=== PATIENT | male | born 1975 | race Caucasian/White ===

== ENCOUNTER 2017-01-22 18:39 | Emergency (ER) | payer OTHER ==
[~2017-01-22] VITALS: Ht 170.2 cm; Wt 116.0 kg
[~2017-01-22 18:39] MED LIST: HYD25 PO
[2017-01-22 18:45] VITALS: Ht 170.2 cm; Wt 116.0 kg
[2017-01-22] MEDS ORDERED: AZIT250T94 PO (20:07)
[2017-01-22] MEDS ORDERED: D-ME473S18 PO (20:07)
[2017-01-22] MEDS ORDERED: IBUP-1542 PO (20:07)
[2017-01-22] MEDS ORDERED: PRED20TA PO (20:07)
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
[2017-01-22 20:25] VITALS: BP 160/98; PULSE 110; RESP 18; TEMP 98.4
== END 2017-01-22 20:26 | disposition home or self-care (01) ==
LOC: FTE 18:39
DX: J06.9 Acute upper respiratory infection, unspecified (principal); F17.210 Nicotine dependence, cigarettes, uncomplicated; I10 Essential (primary) hypertension
CPT/HCPCS: 99284

== ENCOUNTER 2017-05-14 20:31 | Emergency (ER) | payer SELFPAY ==
[~2017-05-14] VITALS: Ht 170.2 cm; Wt 108.5 kg
[~2017-05-14 20:31] MED LIST changes: +AZIT250T94 PO; +D-ME473S18 PO; +IBUP-1542 PO; +PRED20TA PO
[2017-05-14 20:34] VITALS: Ht 170.2 cm; Wt 108.5 kg
== END 2017-05-14 21:52 | disposition left against medical advice (07) ==
LOC: FTE 20:31
DX: Z53.21 Procedure and treatment not carried out due to patient leaving prior to being seen by health care provider (principal)

== ENCOUNTER 2017-05-16 23:19 | Emergency (ER) | payer SELFPAY ==
[~2017-05-16] VITALS: Ht 172.7 cm; Wt 110.0 kg
[2017-05-17 00:03] VITALS: Ht 172.7 cm; Wt 110.0 kg
== END 2017-05-17 01:43 | disposition left against medical advice (07) ==
LOC: FTE 23:19
DX: Z53.21 Procedure and treatment not carried out due to patient leaving prior to being seen by health care provider (principal)

== ENCOUNTER 2017-05-17 04:21 | Emergency (ER) | payer OTHER ==
[~2017-05-17] VITALS: Ht 175.3 cm; Wt 110.0 kg
[2017-05-17 04:23] VITALS: Ht 175.3 cm; Wt 110.0 kg
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
[2017-05-17] MEDS ORDERED: KETOROLAC 15 MG INJ IM STA (04:50)
[2017-05-17] MEDS ORDERED: DIAZEPAM 5 MG TAB PO ONE (05:00)
== END 2017-05-17 05:52 | disposition left against medical advice (07) ==
LOC: FTE 04:21
DX: M25.551 Pain in right hip (principal); M54.5 Low back pain; I10 Essential (primary) hypertension; F17.210 Nicotine dependence, cigarettes, uncomplicated
CPT/HCPCS: 99282; J1885

== ENCOUNTER 2017-06-30 22:26 | Emergency (ER) | payer OTHER ==
[~2017-06-30] VITALS: Ht 167.6 cm; Wt 118.0 kg
[~2017-06-30 22:26] MED LIST changes: -HYD25 PO; +HYDR25TA6 PO
[2017-06-30 22:49] VITALS: Ht 167.6 cm; Wt 118.0 kg
[2017-06-30] MEDS ORDERED: CEPHALEXIN 500 MG CAP PO STA (23:11)
[2017-06-30] MEDS ORDERED: CEPH-443 PO (23:12)
[2017-06-30] MEDS ORDERED: IBUP-1542 PO (23:12)
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
== END 2017-06-30 23:26 | disposition home or self-care (01) ==
LOC: FTE 22:26
DX: S61.432A Puncture wound without foreign body of left hand, initial encounter (principal); X58.XXXA Exposure to other specified factors, initial encounter; Y92.9 Unspecified place or not applicable
CPT/HCPCS: Z7502; Z7610; 99283

== ENCOUNTER 2017-07-02 21:49 | Emergency (ER) | payer SELFPAY ==
[~2017-07-02 21:49] MED LIST changes: +CEPH-443 PO
== END 2017-07-02 22:44 | disposition left against medical advice (07) ==
LOC: E/R 21:49
DX: Z53.21 Procedure and treatment not carried out due to patient leaving prior to being seen by health care provider (principal)

== ENCOUNTER 2017-10-30 02:42 | Emergency (ER) | END 2017-10-30 07:50 | disposition home or self-care (01) ==

== ENCOUNTER 2018-02-27 13:02 | Emergency (ER) | END 2018-02-27 16:02 | disposition home or self-care (01) ==

== ENCOUNTER 2018-10-01 20:05 | Emergency (ER) | payer OTHER ==
[~2018-10-01] VITALS: Wt 122.7 kg
[~2018-10-01 20:05] MED LIST changes: +ALBU8.5H8 INH; +AZIT250T PO; -AZIT250T94 PO; +IBUP-1561 PO; +LORA-441 PO; +MECL12.574 PO; +OSEL75CA23 PO
[2018-10-01 20:09] VITALS: BP 161/104; PULSE 127; RESP 18
[2018-10-01] MEDS ORDERED: KETO5DRO71 OP (22:50)
[2018-10-01] MEDS ORDERED: MED4DP PO (22:50)
[2018-10-01] MEDS ORDERED: LORA10CA PO (22:50)
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
== END 2018-10-01 23:31 | disposition home or self-care (01) ==
LOC: FTE 20:05
DX: H10.12 Acute atopic conjunctivitis, left eye (principal)
CPT/HCPCS: 99283

== ENCOUNTER 2018-10-06 21:36 | Emergency (ER) | payer SELFPAY ==
[~2018-10-06] VITALS: Ht 165.1 cm; Wt 120.2 kg
[~2018-10-06 21:36] MED LIST changes: +KETO5DRO71 OP; +LORA10CA PO; +MED4DP PO
[2018-10-06 21:45] VITALS: BP 163/86; PULSE 98; RESP 22; Ht 165.1 cm; Wt 120.2 kg
== END 2018-10-06 23:04 | disposition left against medical advice (07) ==
LOC: FTE 21:36
DX: Z53.21 Procedure and treatment not carried out due to patient leaving prior to being seen by health care provider (principal)
CPT/HCPCS: 93005

== ENCOUNTER 2019-04-18 05:41 | Emergency (ER) | payer SELFPAY ==
[~2019-04-18] VITALS: Ht 167.6 cm; Wt 115.6 kg
[2019-04-18 05:43] VITALS: BP 143/73; PULSE 110; RESP 18; Ht 167.6 cm; Wt 115.6 kg
== END 2019-04-18 05:53 | disposition left against medical advice (07) ==
LOC: E/R 05:41 → FTE 05:53
DX: Z53.21 Procedure and treatment not carried out due to patient leaving prior to being seen by health care provider (principal)
CPT/HCPCS: 93005